=== PATIENT | male | born 1945 ===

== ENCOUNTER 2021-03-24 06:45 | Day surgery (SDC) | payer OTHER ==
[~2021-03-24 06:45] MED LIST: CALTRATE 600+D1 EAC1 PO
== END 2021-03-24 13:50 | disposition home or self-care (01) ==
LOC: CIR.AMB 06:45
PROVIDERS: ATTEND Orthopaedic Surgery
DX: M75.121 Complete rotator cuff tear or rupture of right shoulder, not specified as traumatic (principal); M75.21 Bicipital tendinitis, right shoulder; Z20.822 Contact with and (suspected) exposure to COVID-19